=== PATIENT | male | born 1960 | race Caucasian/White ===

== ENCOUNTER 2016-12-06 00:14 | Day surgery (SDC) | payer OTHER ==
[~2016-12-06] VITALS: Ht 177.8 cm; Wt 108.7 kg
[2016-12-06] VITALS (10 sets, daily range): BP systolic 116–131; BP diastolic 74–86; PULSE 63–77; RESP 10–19; O2SAT 93–97
[~2016-12-06 00:14] MED LIST: ASPI-973 PO; CALC-140 PO; FENO48TA15 PO; GLIP10TA10 PO; GLUC100016 PO; INSU300I SQ; LIP40 PO; METF500T4 PO; MULT1CAP33 PO; OLME1TAB3 PO; OMEG1CAP2 PO
[2016-12-06 06:26] LABS: BASOPHILS % (AUTO) 0.7 % (0-3); Mean Corpuscular Hemoglobin 31.5 pg (27.0-35.0); Mean Corpuscular Volume 88.2 fL (81-100); NEUTROPHILS % (AUTO) 60.1 % (40-74); Platelet Count 181 bil/L (150-400)
[2016-12-06 06:37] LABS: INR 0.92 ratio
[2016-12-06] MEDS ORDERED: CALC600T12 PO (06:54)
[2016-12-06] MEDS ORDERED: CHOL10008 PO (06:54)
[2016-12-06] MEDS ORDERED: Heparin 10,000 Unit/1,000 mL NS Premix IV ONE (07:30)
[2016-12-06] MEDS ORDERED: Heparin 1,000 Units/500 mL NS Premix IV ONE (07:30)
[2016-12-06] MEDS ORDERED: Heparin 1,000 Unit/mL 10 mL Inj ONE (07:36)
[2016-12-06] MEDS ORDERED: Verapamil 2.5 mg/mL 2 mL Inj ONE (07:36)
[2016-12-06] MEDS ORDERED: Nitroglycerin 50,000 mcg/250 mL D5W Premix IV ONE (07:36)
[2016-12-06] MEDS ORDERED: fentaNYL-PF 50 mCg/mL 2 mL Inj ONE (07:49)
[2016-12-06] MEDS ORDERED: 0.9% Sodium Chloride 1,000 ML IV ONE (08:00)
[2016-12-06] MEDS ORDERED: 0.9% Sodium Chloride 250 ML IV PRN (08:37)
[2016-12-06] MEDS ORDERED: 0.9% Sodium Chloride 1,000 ML IV PRN (08:37)
[2016-12-06] MEDS ORDERED: Atropine 1 mg/10 mL (Code) Syringe IVPUSH PRN (08:40)
[2016-12-06] MEDS ORDERED: Ondansetron 2 mg/mL 2 mL Inj IVPUSH PRN (08:40)
[2016-12-06] MEDS ORDERED: HYDROcodone-APAP 5-325 mg Tablet PO PRN (08:40)
--- NOTE | 2016-12-06 11:13 | NUR ---
Patient off bedrest x 30 minutes. He has been ambulatory, right groin remains intact.Bandaid placed to right groin puncture sight, opsite dressing removed.Discharge instructions reviewed and patient is discharged ambulatory with his to drive him home.
--- NOTE | 2016-12-06 12:10 | CS94 ---
[place] [id number] DIAGNOSTIC CARDIAC CATHETERIZATION PATIENT: RADHA SCHULZ : 1960 MR#: [id number] ADMIT: 12/06/2016 JOB ID: [id number] SERVICE DATE: 12/06/2016 PROCEDURE: 1. Retrograde left heart catheterization. 2. Selective left and right coronary angiography. 3. Left ventricular cineangiography. INDICATIONS: The patient is a 56-year-old male who has a known history of coronary artery disease, status post angioplasty to mid LAD. The patient recently reported events of chest pains provoked by emotional stressors of life. The patient was otherwise active. Stress test was performed, which demonstrated hypoperfusion of the inferior wall. Given those findings, the patient was scheduled for coronary angiography. DESCRIPTION OF PROCEDURE: The patient was brought to the catheterization laboratory and placed on the catheterization table. Procedural sedation was given per protocol. Please see the event log. Lidocaine 1% was infiltrated in the right groin area to achieve topical anesthesia. Using a modified Seldinger technique a 6-Tamazight arterial sheath was placed in the right femoral artery without any difficulty. FR4 catheter was used to engage the left main coronary artery. Multiple views of the left coronary artery were obtained in multiple projections. FR4 catheter was used to engage the right coronary artery and single view of the right coronary artery was obtained. The left ventricular cineangiography was not performed. Right groin angiography was performed. TOTAL FLUOROSCOPY TIME: 1.8 minutes. TOTAL CONTRAST USED: 55 cc. FINDINGS: HEMODYNAMICS: The left ventricular end-diastolic pressure was 24 mmHg. The LV pressure was 116/2, with aortic pressure of 129/77. CORONARY ANGIOGRAPHY: The left main coronary artery is short and bifurcates into the left anterior descending artery and left circumflex coronary artery. The left anterior descending artery has mild to moderately diffuse calcification in the proximal to mid segments. A widely patent stent noted in the mid LAD. Distal to the stent there is a focal tubular stenosis noted of 40% to 50% severity. The distal LAD demonstrates no significant disease. The diagonal branch arising from the LAD demonstrates no significant disease. The left circumflex is a large caliber vessel, which gives off three obtuse marginal branches. It traverses in the posterior AV groove and gives off a posterolateral branch. The left circumflex demonstrate mild diffuse luminal irregularities. No high-grade stenosis noted. The right coronary artery is a small, nondominant vessel free of any significant disease. IMPRESSION: 1. Widely patent mid left anterior descending stent. Tubular. 2. Mild to moderate 40% to 50% stenosis in the mid left anterior descending distal to the widely patent stent. 3. Elevated left ventricular end-diastolic pressure.
== END 2016-12-06 23:59 | disposition home or self-care (01) ==
LOC: SOUO 00:14
PROVIDERS: ATTEND Internal Medicine Cardiovascular Disease
DX: I25.10 Atherosclerotic heart disease of native coronary artery without angina pectoris (principal); E11.9 Type 2 diabetes mellitus without complications; E78.1 Pure hyperglyceridemia; I10 Essential (primary) hypertension; G47.33 Obstructive sleep apnea (adult) (pediatric); Z95.5 Presence of coronary angioplasty implant and graft; Z79.82 Long term (current) use of aspirin; Z79.84 Long term (current) use of oral hypoglycemic drugs; Z79.4 Long term (current) use of insulin; Z82.49 Family history of ischemic heart disease and other diseases of the circulatory system
CPT/HCPCS: 36415; 80048; 85025; 85610; 93005; 93458; 99152; 99153; C1760; C1769; J1644; J2250; J3010; J7030; Q9967